=== PATIENT | male | born 1955 | race Caucasian/White ===

== ENCOUNTER 2017-02-24 21:43 | Inpatient (IN) | payer OTHER ==
[~2017-02-24] VITALS: Ht 170.2 cm; Wt 84.1 kg
[~2017-02-24 21:43] MED LIST: METH4TAB2 PO
[2017-02-24] MEDS ORDERED: ONDANSETRON 2MG/ML, 2ML ONE (22:15)
[2017-02-24] MEDS ORDERED: MORPHINE SULFATE 4 MG/ML, 1ML ONE (22:15)
[2017-02-24] MEDS ORDERED: MORPHINE SULFATE 4 MG/ML, 1ML IVPush PRN (22:30)
[2017-02-24] MEDS ORDERED: SODIUM CHLORIDE 0.9% 1,000ML IVBOLUS ONE (22:30)
[2017-02-24] MEDS ORDERED: ONDANSETRON 2MG/ML, 2ML IVPush ONE (22:30)
[2017-02-24] MEDS ORDERED: SODIUM CHLORIDE FLUSH 10ML SYR IVF ONE (22:30)
[2017-02-24 22:40] LABS: HEMOGLOBIN 18.9 g/dL (13.7-18.0)
[2017-02-24 22:51] LABS: ASPARTATE AMINO TRANSFERASE 15 U/L (15-37); BLOOD UREA NITROGEN 18 mg/dL (7-18)
[2017-02-24] MEDS ORDERED: OMNIPAQUE 350 MG/ML, 100ML BOTTLE ONE (23:17)
[2017-02-25] MEDS ORDERED: SODIUM CHLORIDE 0.9% 1,000 ML IV ONE (00:32)
[2017-02-25] MEDS ORDERED: ONDANSETRON 2MG/ML, 2ML IVPush PRN (01:00)
[2017-02-25] MEDS ORDERED: MORPHINE SULFATE 4 MG/ML, 1ML IVPush PRN (01:00)
[2017-02-25] MEDS: SODIUM CHLORIDE 0.9% 1,000 ML IV SCH ×3 (02:13→18:02)
[2017-02-25 02:19] VITALS: BP 133/93
[2017-02-25] MEDS ORDERED: DOCUSATE 100 MG CAPSULE PO PRN (02:30)
[2017-02-25] MEDS ORDERED: LABETALOL 5MG/ML, 20ML IV PRN (02:30)
[2017-02-25] MEDS ORDERED: BISACODYL 10 MG SUPP PR PRN (02:30)
[2017-02-25] MEDS ORDERED: ACETAMINOPHEN 325 MG TABLET PO PRN (02:30)
[2017-02-25] MEDS ORDERED: POLYETHYLENE GLYCOL 17 GM PACKET PO PRN (02:30)
[2017-02-25] MEDS ORDERED: TRAZODONE 50MG TABLET PO PRN (02:30)
[2017-02-25] MEDS ORDERED: ONDANSETRON 2MG/ML, 2ML IVP PRN (02:30)
[2017-02-25] MEDS: NICOTINE 14MG/24 HR PATCH.TD24 TD SCH (02:30)
[2017-02-25] MEDS: ENOXAPARIN 40 MG/0.4 ML SQ SCH (03:02)
[2017-02-25 07:45] VITALS: BP 141/90
[2017-02-25] MEDS: MORPHINE SULFATE 4 MG/ML, 1ML IVPush PRN ×2 (08:20→18:03)
[2017-02-25] MEDS: FAMOTIDINE 20 MG/2 ML IV SCH ×2 (08:21→20:25)
[2017-02-25] MEDS ORDERED: GOLYTELY 4,000ML ORAL.SOL PO ONE (09:00)
[2017-02-25] MEDS ORDERED: METOCLOPRAMIDE 10MG TABLET PO ONE (09:00)
[2017-02-25 14:23] VITALS: BP 105/74
[2017-02-25] MEDS ORDERED: BISACODYL 5 MG EC TABLET PO ONE (16:00)
[2017-02-25 19:23] VITALS: BP 122/72
[2017-02-26 01:46] VITALS: BP 117/74
[2017-02-26] MEDS: SODIUM CHLORIDE 0.9% 1,000 ML IV SCH ×2 (02:27→10:13)
[2017-02-26] MEDS: ENOXAPARIN 40 MG/0.4 ML SQ SCH (02:28)
[2017-02-26] MEDS: NICOTINE 14MG/24 HR PATCH.TD24 TD SCH (02:28)
[2017-02-26 06:07] LABS: BLOOD UREA NITROGEN 10 mg/dL (7-18)
[2017-02-26 07:44] VITALS: BP 109/74
[2017-02-26] MEDS ORDERED: LACTULOSE 20 GM/30 ML UDC PO ONE (08:00)
[2017-02-26] MEDS: FAMOTIDINE 20 MG/2 ML IV SCH (08:20)
[2017-02-26 13:54] VITALS: BP 120/74
== END 2017-02-26 14:34 | disposition home or self-care (01) | DRG 389 ==
LOC: EDIP 02-25 00:32 → ED 02-25 00:43 → 3NE 02-25 01:49
PROVIDERS: ADMIT Internal Medicine; ATTEND Internal Medicine
DX: K56.7 Ileus, unspecified (principal); E87.1 Hypo-osmolality and hyponatremia; K56.5 Intestinal adhesions [bands] with obstruction (postinfection); D75.1 Secondary polycythemia; F17.210 Nicotine dependence, cigarettes, uncomplicated; K57.30 Diverticulosis of large intestine without perforation or abscess without bleeding; N28.1 Cyst of kidney, acquired; R09.02 Hypoxemia; R00.0 Tachycardia, unspecified; Z80.7 Family history of other malignant neoplasms of lymphoid, hematopoietic and related tissues; Z90.49 Acquired absence of other specified parts of digestive tract
CPT/HCPCS: 36415; 74177; 74270; 80048; 80053; 81003; 83690; 85025; 87324; 96361; 96374; 96375; J1650; J2405; Q9967; J7030; J7512; S0028

== ENCOUNTER 2017-03-03 05:02 | Emergency (ER) | payer OTHER ==
[~2017-03-03] VITALS: Ht 170.2 cm; Wt 80.6 kg
[2017-03-03] MEDS ORDERED: SODIUM CHLORIDE 0.9% 1,000 ML IV ONE (05:21)
[2017-03-03] MEDS ORDERED: MORPHINE SULFATE 4 MG/ML, 1ML ONE ×2 (05:24→06:37)
[2017-03-03] MEDS ORDERED: FAMOTIDINE 20 MG/2 ML ONE (05:25)
[2017-03-03] MEDS ORDERED: ONDANSETRON 2MG/ML, 2ML ONE (05:25)
[2017-03-03] MEDS ORDERED: FAMOTIDINE 20 MG/2 ML IVP ONE (05:30)
[2017-03-03] MEDS ORDERED: MAALOX/HYOSCYAMINE/LIDOCAINE 45 ML BOTTLE PO ONE (05:30)
[2017-03-03] MEDS ORDERED: ONDANSETRON 2MG/ML, 2ML IVPush ONE (05:30)
[2017-03-03] MEDS ORDERED: SODIUM CHLORIDE 0.9% 1,000ML IVBOLUS ONE (05:30)
[2017-03-03] MEDS: MORPHINE SULFATE 4 MG/ML, 1ML IVPush PRN ×2 (05:40→06:38)
[2017-03-03 05:56] LABS: HEMOGLOBIN 18.1 g/dL (13.7-18.0)
[2017-03-03 06:05] LABS: ASPARTATE AMINO TRANSFERASE 16 U/L (15-37); BLOOD UREA NITROGEN 19 mg/dL (7-18)
[2017-03-03] MEDS ORDERED: MAALOX/HYOSCYAMINE/LIDOCAINE 45 ML BOTTLE ONE (06:36)
[2017-03-03 10:02] VITALS: BP 136/89
== END 2017-03-03 10:08 | disposition home or self-care (01) ==
LOC: ED 05:19
DX: R10.84 Generalized abdominal pain (principal)
CPT/HCPCS: 36415; 74177; 80053; 81003; 83605; 83690; 85025; 85610; 93005; 96361; 96374; 96375; 96376; 99285; J2405; J7030; S0028

== ENCOUNTER → 2017-05-26 | Outpatient (CLI) | payer OTHER ==
[~2017-05-26] MED LIST changes: +LOPE2CAP94 PO
== END | disposition home or self-care (01) ==
LOC: STAR 09:24
PROVIDERS: ATTEND Internal Medicine Gastroenterology
DX: Z01.818 Encounter for other preprocedural examination (principal); R94.31 Abnormal electrocardiogram [ECG] [EKG]; R19.4 Change in bowel habit; K56.69 Other intestinal obstruction
CPT/HCPCS: 93005

== ENCOUNTER 2017-06-02 05:22 | Day surgery (SDC) | payer OTHER ==
[~2017-06-02] VITALS: Ht 170.2 cm; Wt 78.0 kg
[2017-06-02] MEDS ORDERED: LACTATED RINGERS 1,000 ML IV SCH (06:07)
[2017-06-02 06:09] VITALS: BP 141/103
[2017-06-02] MEDS ORDERED: MIDAZOLAM 1 MG/ML, 2ML ONE (07:22)
[2017-06-02] MEDS ORDERED: PROPOFOL 10 MG/ML, 20ML ONE (07:32)
[2017-06-02] MEDS ORDERED: PROPOFOL 10 MG/ML, 50ML ONE (07:32)
== END 2017-06-02 10:03 ==
LOC: OUT 05:22
PROVIDERS: ATTEND Internal Medicine Gastroenterology
DX: K29.50 Unspecified chronic gastritis without bleeding (principal); K29.80 Duodenitis without bleeding; K63.89 Other specified diseases of intestine; Z98.0 Intestinal bypass and anastomosis status; F17.200 Nicotine dependence, unspecified, uncomplicated; Z90.49 Acquired absence of other specified parts of digestive tract; Z98.890 Other specified postprocedural states
CPT/HCPCS: 43239; 45380; 74000; 76000; 88305; C1725; J2250; J2704; J7120

== ENCOUNTER → 2017-09-02 | Outpatient (CLI) | payer OTHER ==
[~2017-09-02] MED LIST changes: +CEFAZOLIN 1,000 MG ONE; +FENTANYL PF 100 MCG/2ML ONE; +GLYCOPYRROLATE 0.4 MG/2 ML, 2ML ONE; +IBUP200C8 PO; +MIDAZOLAM 1 MG/ML, 2ML ONE; +NEOSTIGMINE 1 MG/ML, 10ML ONE; +PROPOFOL 10 MG/ML, 20ML ONE; +ROCURONIUM 10 MG/ML ONE
== END | disposition home or self-care (01) ==
LOC: STAR 08:48
PROVIDERS: ATTEND Surgery
DX: Z01.818 Encounter for other preprocedural examination (principal); K66.0 Peritoneal adhesions (postprocedural) (postinfection)
CPT/HCPCS: 93005

== ENCOUNTER 2017-09-07 07:06 | Day surgery (SDC) | payer OTHER ==
[~2017-09-07] VITALS: Ht 170.2 cm; Wt 83.1 kg
[~2017-09-07 07:06] MED LIST changes: +BUPIVACAINE/PF 0.5% ONE; -CEFAZOLIN 1,000 MG ONE; +EPINEPHRINE 1 MG/ML, 1ML ONE; -FENTANYL PF 100 MCG/2ML ONE; -GLYCOPYRROLATE 0.4 MG/2 ML, 2ML ONE; -MIDAZOLAM 1 MG/ML, 2ML ONE; -NEOSTIGMINE 1 MG/ML, 10ML ONE; -PROPOFOL 10 MG/ML, 20ML ONE; -ROCURONIUM 10 MG/ML ONE
[2017-09-07 07:37] VITALS: BP 140/99
[2017-09-07] MEDS ORDERED: LACTATED RINGERS 1,000 ML IV SCH (08:00)
[2017-09-07] MEDS ORDERED: MEPERIDINE/PF 25MG/0.5ML IVPush PRN (09:00)
[2017-09-07] MEDS ORDERED: ONDANSETRON 2MG/ML, 2ML IVPush PRN (09:00)
[2017-09-07] MEDS ORDERED: LABETALOL 5MG/ML, 20ML IV PRN (09:00)
[2017-09-07] MEDS ORDERED: OXYcodone 5 MG/5 ML ORAL.SOL UDC PO PRN (09:00)
[2017-09-07] MEDS ORDERED: HYDROmorphone 1 MG/ML, 1ML IV PRN (09:00)
[2017-09-07] MEDS ORDERED: PROMETHAZINE 25 MG/ML, 1ML IV PRN (09:00)
[2017-09-07] MEDS ORDERED: ACETAMINOPHEN 325 MG TABLET PO PRN (09:00)
[2017-09-07] MEDS ORDERED: BUPIVACAINE/PF-EPI 0.25% 1:200K IM ONE (09:00)
[2017-09-07] MEDS ORDERED: hydrALAzine 20 MG/ML, 1ML IV PRN (09:00)
[2017-09-07] MEDS ORDERED: FENTANYL PF 100 MCG/2ML ONE ×2 (09:56→16:15)
[2017-09-07] MEDS ORDERED: ACETAMINOPHEN 650 MG/20.3 ML UDC ONE (09:56)
[2017-09-07] MEDS ORDERED: OXYcodone 5 MG/5 ML ORAL.SOL UDC ONE (09:56)
[2017-09-07] MEDS: FENTANYL PF 100 MCG/2ML IV PRN ×2 (09:58→10:11)
[2017-09-07] MEDS ORDERED: HYDROmorphone 2 MG/ML, 1ML ONE (10:19)
[2017-09-07] MEDS ORDERED: LABETALOL 5MG/ML, 20ML ONE (10:25)
[2017-09-07] MEDS ORDERED: GLYCOPYRROLATE 0.2MG/1ML, 5ML ONE (16:15)
[2017-09-07] MEDS ORDERED: PROPOFOL 10 MG/ML, 20ML ONE (16:15)
[2017-09-07] MEDS ORDERED: PHENYLEPHRINE 10 MG/ML ONE (16:15)
[2017-09-07] MEDS ORDERED: CEFAZOLIN 1,000 MG ONE (16:15)
[2017-09-07] MEDS ORDERED: ROCURONIUM 10MG/ML,5ML ONE (16:15)
[2017-09-07] MEDS ORDERED: MIDAZOLAM 1 MG/ML, 2ML ONE (16:15)
== END 2017-09-07 13:10 ==
LOC: OUT 07:06
PROVIDERS: ATTEND Surgery
DX: K56.609 Unspecified intestinal obstruction, unspecified as to partial versus complete obstruction (principal); J45.909 Unspecified asthma, uncomplicated; Z98.890 Other specified postprocedural states; Z90.49 Acquired absence of other specified parts of digestive tract
CPT/HCPCS: 44180; J0171; J0690; J1170; J2250; J2370; J2704; J3010; J3490; J7120; J2710

== ENCOUNTER 2018-10-02 19:15 | Inpatient (IN) | payer OTHER ==
[~2018-10-02] VITALS: Ht 170.2 cm; Wt 83.6 kg
[~2018-10-02 19:15] MED LIST changes: -BUPIVACAINE/PF 0.5% ONE; -EPINEPHRINE 1 MG/ML, 1ML ONE
[2018-10-02] MEDS ORDERED: ONDANSETRON 2MG/ML, 2ML ONE (19:58)
[2018-10-02] MEDS ORDERED: MORPHINE SULFATE 4 MG/ML, 1ML ONE ×3 (19:59→23:41)
[2018-10-02] MEDS ORDERED: ONDANSETRON 2MG/ML, 2ML IVPush ONE (20:00)
[2018-10-02] MEDS ORDERED: ONDANSETRON ODT 4 MG PO ONE (20:00)
[2018-10-02] MEDS ORDERED: SODIUM CHLORIDE FLUSH 10ML SYR IVF ONE (20:00)
[2018-10-02] MEDS ORDERED: SODIUM CHLORIDE 0.9% 1,000ML IVBOLUS ONE (20:00)
[2018-10-02 20:02] LABS: BASOPHILS # (AUTO) 0.03 x10^3/uL (0-0.1); BASOPHILS % (AUTO) 0 % (0-1); EOSINOPHILS # (AUTO) 0.13 x10^3/uL (0-0.4); EOSINOPHILS % (AUTO) 2 % (1-7); LYMPHOCYTES # (AUTO) 1.53 x10^3/uL (1-3.4); LYMPHOCYTES % (AUTO) 20 % (22-44); MD NO; MEAN CORPUSCULAR HGB CONC 33.7 g/dL (33.2-36.2); MEAN CORPUSCULAR VOLUME 91.8 fL (81-97); MEAN PLATELET VOLUME 7.6 fL (7.4-10.4); MONOCYTES % (AUTO) 19 % (2-9); NEUTROPHILS # (AUTO) 4.45 x10^3/uL (1.8-6.8); NEUTROPHILS % (AUTO) 59 % (42-75); PLATELET COUNT 257 x10^3/uL (130-400); RED BLOOD COUNT 6.28 x10^6/uL (4.38-5.82); RED CELL DISTRIBUTION WIDTH 13.7 % (9.4-14.8)
[2018-10-02] MEDS: MORPHINE SULFATE 4 MG/ML, 1ML IVPush PRN ×2 (20:02→20:38)
[2018-10-02 20:15] LABS: ALBUMIN 3.6 g/dL (3.4-5.0); ANION GAP 10 mmol/L (5-15); CALCIUM 8.6 mg/dL (8.5-10.1); CHLORIDE 102 mmol/L (98-107)
[2018-10-02 20:19] LABS: ALANINE AMINOTRANSFERASE 59 U/L (12-78); ALKALINE PHOSPHATASE 64 U/L (45-117); BILIRUBIN,TOTAL 0.9 mg/dL (0.2-1.0); CREATININE 1.07 mg/dL (0.7-1.3); TOTAL PROTEIN 7.5 g/dL (6.4-8.2)
[2018-10-02] MEDS ORDERED: HYDR-3240 PO (20:39)
[2018-10-02] MEDS ORDERED: OMNIPAQUE 350 MG/ML, 100ML BOTTLE ONE (21:16)
[2018-10-02 22:16] LABS: CULTURE INDICATED? NO; MICROSCOPIC NOT IND
[2018-10-02] MEDS ORDERED: SODIUM CHLORIDE 0.9% 1,000 ML IV ONE (23:30)
[2018-10-02] MEDS: morphine SULFATE 10 MG/ML, 1ML IVPush PRN (23:43)
[2018-10-03] MEDS ORDERED: hydrALAzine 20 MG/ML, 1ML IVPush PRN
[2018-10-03] MEDS ORDERED: ONDANSETRON 2MG/ML, 2ML IVPush PRN
[2018-10-03] MEDS ORDERED: LIDODERM 5% PATCH TD PRN
[2018-10-03 01:18] VITALS: BP 136/89
[2018-10-03] MEDS: SODIUM CHLORIDE 0.9% 1,000 ML IV SCH ×4 (01:47→21:10)
[2018-10-03] MEDS: KETOROLAC 30 MG/1 ML IV PRN ×3 (06:52→23:03)
[2018-10-03 07:04] VITALS: BP 117/80
[2018-10-03 12:10] VITALS: BP 116/81
[2018-10-03 19:42] VITALS: BP 116/78
[2018-10-04 02:45] VITALS: BP 118/71
[2018-10-04] MEDS: SODIUM CHLORIDE 0.9% 1,000 ML IV SCH ×2 (04:22→17:51)
[2018-10-04] MEDS: morphine SULFATE 10 MG/ML, 1ML IVPush PRN ×2 (05:44→19:37)
[2018-10-04 06:40] LABS: CLOSTRIDIUM DIFFICILE ANTIGEN NEGATIVE; CLOSTRIDIUM DIFFICILE TOXIN NEGATIVE (Negative)
[2018-10-04 07:05] VITALS: BP 122/76
[2018-10-04 12:46] VITALS: BP 132/72
[2018-10-04] MEDS: KETOROLAC 30 MG/1 ML IV PRN ×2 (17:51→23:46)
[2018-10-04 19:12] VITALS: BP 126/88
[2018-10-05 03:07] VITALS: BP 143/89
[2018-10-05] MEDS: SODIUM CHLORIDE 0.9% 1,000 ML IV SCH (06:03)
[2018-10-05] MEDS: KETOROLAC 30 MG/1 ML IV PRN (06:03)
[2018-10-05 07:22] VITALS: BP 143/92
[2018-10-05 14:41] VITALS: BP 138/90
[2018-10-05 19:05] VITALS: BP 141/94
[2018-10-06 02:32] VITALS: BP 137/89
[2018-10-06] MEDS ORDERED: BACITRACIN 50,000 UNIT ONE (07:50)
[2018-10-06 08:32] VITALS: BP 127/88
[2018-10-06] MEDS ORDERED: MIDAZOLAM 1 MG/ML, 2ML ONE (09:59)
[2018-10-06] MEDS ORDERED: FENTANYL PF 250 MCG/5ML ONE (09:59)
[2018-10-06] MEDS ORDERED: ROCURONIUM 10MG/ML,5ML ONE (10:59)
[2018-10-06] MEDS ORDERED: NEOSTIGMINE 1 MG/ML, 10ML ONE (10:59)
[2018-10-06] MEDS ORDERED: GLYCOPYRROLATE 0.2MG/1ML, 5ML ONE (10:59)
[2018-10-06] MEDS ORDERED: DEXAMETHASONE 4 MG/ML, 1ML ONE (10:59)
[2018-10-06] MEDS ORDERED: CEFAZOLIN 1,000 MG ONE (10:59)
[2018-10-06] MEDS ORDERED: PROPOFOL 10 MG/ML, 20ML ONE (10:59)
[2018-10-06] MEDS ORDERED: SUCCINYLCHOLINE 20 MG/ML, 10ML ONE ×2 (10:59→16:25)
[2018-10-06] MEDS ORDERED: ONDANSETRON 2MG/ML, 2ML ONE (10:59)
[2018-10-06] MEDS ORDERED: PROMETHAZINE 25 MG SUPP PR PRN (11:00)
[2018-10-06] MEDS ORDERED: MEPERIDINE/PF 50 MG/ML ONE (11:00)
[2018-10-06] MEDS ORDERED: ONDANSETRON 2MG/ML, 2ML IV PRN (11:00)
[2018-10-06] MEDS ORDERED: MEPERIDINE/PF 25MG/0.5ML IVPush PRN (11:00)
[2018-10-06] MEDS ORDERED: hydrALAzine 20 MG/ML, 1ML IV PRN (11:00)
[2018-10-06] MEDS ORDERED: ALBUTEROL/IPRATROPIUM 2.5MG/0.5MG, 3 ML NPPB PRN (11:00)
[2018-10-06] MEDS ORDERED: MIDAZOLAM 1 MG/ML, 2ML IV PRN (11:00)
[2018-10-06] MEDS ORDERED: FENTANYL PF 100 MCG/2ML ONE ×2 (11:13→12:06)
[2018-10-06] MEDS ORDERED: HYDROmorphone 2 MG/ML, 1ML ONE ×3 (11:14→19:20)
[2018-10-06] MEDS ORDERED: LABETALOL 5MG/ML, 20ML ONE (11:19)
[2018-10-06] MEDS: LABETALOL 5MG/ML, 20ML IV PRN ×4 (11:21→11:53)
[2018-10-06] MEDS: FENTANYL PF 100 MCG/2ML IV PRN ×4 (11:30→12:24)
[2018-10-06] MEDS: HYDROmorphone 1 MG/ML, 1ML IV PRN ×4 (11:35→11:55)
[2018-10-06 13:16] VITALS: BP 144/96
[2018-10-06 13:53] VITALS: BP 138/89
[2018-10-06] MEDS ORDERED: HYDROmorphone 1 MG/ML, 1ML IV PRN (14:30)
[2018-10-06] MEDS ORDERED: morphine SULFATE 10 MG/ML, 1ML IV PRN (14:30)
[2018-10-06] MEDS: ENOXAPARIN 40 MG/0.4 ML SQ SCH (14:30)
[2018-10-06] MEDS: SODIUM CHLORIDE 0.9% 1,000 ML IV SCH ×2 (15:55→23:00)
[2018-10-06] MEDS ORDERED: KETOROLAC 30 MG/1 ML ONE (16:25)
[2018-10-06] MEDS: HYDROmorphone 2 MG/ML, 1ML IV PRN ×3 (19:49→23:37)
[2018-10-06 20:37] VITALS: BP 151/89
[2018-10-06] MEDS: KETOROLAC 30 MG/1 ML IV PRN (21:39)
[2018-10-06] MEDS: CEFOTETAN PMX 1GM/50ML 50 ML IVPB SCH (22:32)
[2018-10-06 23:52] VITALS: BP 135/85
[2018-10-07] MEDS: HYDROmorphone 2 MG/ML, 1ML IV PRN ×8 (01:25→22:29)
[2018-10-07] MEDS: KETOROLAC 30 MG/1 ML IV PRN ×3 (03:52→20:05)
[2018-10-07 04:05] VITALS: BP 133/72
[2018-10-07] MEDS: POTASSIUM CHLORIDE 20 MEQ in D5%-0.45% NACL 1,000 ML IV SCH ×2 (05:25→14:41)
[2018-10-07 05:29] LABS: ALANINE AMINOTRANSFERASE 49 U/L (12-78); ALKALINE PHOSPHATASE 49 U/L (45-117); BILIRUBIN,TOTAL 0.4 mg/dL (0.2-1.0); CREATININE 1.07 mg/dL (0.7-1.3); TOTAL PROTEIN 6.1 g/dL (6.4-8.2)
[2018-10-07 05:36] LABS: ALBUMIN 2.9 g/dL (3.4-5.0); ANION GAP 8 mmol/L (5-15); CALCIUM 7.8 mg/dL (8.5-10.1); CHLORIDE 109 mmol/L (98-107)
[2018-10-07 05:48] LABS: MEAN CORPUSCULAR HEMOGLOBIN 31.1 pg (27.5-34.5); MEAN CORPUSCULAR HGB CONC 33.9 g/dL (33.2-36.2); MEAN CORPUSCULAR VOLUME 91.8 fL (81-97); PLATELET COUNT 243 x10^3/uL (130-400); RED BLOOD COUNT 5.37 x10^6/uL (4.38-5.82); RED CELL DISTRIBUTION WIDTH 13.1 % (9.4-14.8)
[2018-10-07 06:24] LABS: MD YES
[2018-10-07 06:30] LABS: BAND#(MANUAL) 0.05 x10^3/uL; BANDS%(MANUAL) 1 % (0-7); EOS#(MANUAL) 0.21 x10^3/uL (0.0-0.4); EOS% (MANUAL) 4 % (1-7); LYMPHS% (MANUAL) 27 % (22-44); MONOS#(MANUAL) 0.94 x10^3/uL (0.3-2.7); MONOS% (MANUAL) 18 % (2-9); REACTIVE LYMPHS # (MANUAL) 0.16 x10^3/uL (0-0); REACTIVE LYMPHS % (MANUAL) 3 % (0-0); SEG#(MANUAL) 2.44 x10^3/uL (1.8-6.8); SEGS% (MANUAL) 47 % (42-75)
[2018-10-07 06:31] LABS: <PLATELET ESTIMATE> ADEQUATE; <RBC MORPHOLOGY> NORMAL
[2018-10-07 06:32] LABS: <PLT MORPHOLOGY> NORMAL PLT MORPH
[2018-10-07 07:07] VITALS: BP 121/80
[2018-10-07] MEDS: CEFOTETAN PMX 1GM/50ML 50 ML IVPB SCH (10:42)
[2018-10-07] MEDS: SODIUM CHLORIDE 0.9% 1,000 ML IV SCH (13:00)
[2018-10-07 13:19] VITALS: BP 148/92
[2018-10-07] MEDS: ENOXAPARIN 40 MG/0.4 ML SQ SCH (14:30)
[2018-10-07 19:26] VITALS: BP 157/107
[2018-10-07] MEDS ORDERED: BENZOCAINE AEROSOL SPRAY 20%, 60ML TP PRN (20:30)
[2018-10-08] MEDS: HYDROmorphone 2 MG/ML, 1ML IV PRN ×11 (00:30→23:32)
[2018-10-08 02:06] VITALS: BP 134/83
[2018-10-08] MEDS: POTASSIUM CHLORIDE 20 MEQ in D5%-0.45% NACL 1,000 ML IV SCH ×3 (02:28→21:51)
[2018-10-08 06:55] VITALS: BP 156/91
[2018-10-08 12:00] VITALS: BP 161/102
[2018-10-08] MEDS: ENOXAPARIN 40 MG/0.4 ML SQ SCH (14:52)
[2018-10-08 17:07] VITALS: BP 156/96
[2018-10-08 17:41] VITALS: BP 132/88
[2018-10-08 18:46] VITALS: BP 134/92
[2018-10-09] MEDS: HYDROmorphone 2 MG/ML, 1ML IV PRN ×10 (01:36→22:12)
[2018-10-09 02:11] VITALS: BP 134/89
[2018-10-09 05:22] LABS: ANION GAP 7 mmol/L (5-15); CHLORIDE 103 mmol/L (98-107); CREATININE 0.84 mg/dL (0.7-1.3)
[2018-10-09] MEDS: POTASSIUM CHLORIDE 20 MEQ in D5%-0.45% NACL 1,000 ML IV SCH ×3 (05:41→22:12)
[2018-10-09 05:44] LABS: BASOPHILS # (AUTO) 0.02 x10^3/uL (0-0.1); BASOPHILS % (AUTO) 0 % (0-1); EOSINOPHILS # (AUTO) 0.47 x10^3/uL (0-0.4); EOSINOPHILS % (AUTO) 6 % (1-7); LYMPHOCYTES # (AUTO) 1.42 x10^3/uL (1-3.4); LYMPHOCYTES % (AUTO) 17 % (22-44); MD NO; MEAN CORPUSCULAR HEMOGLOBIN 31.3 pg (27.5-34.5); MEAN CORPUSCULAR HGB CONC 33.9 g/dL (33.2-36.2); MEAN CORPUSCULAR VOLUME 92.4 fL (81-97); MEAN PLATELET VOLUME 7.8 fL (7.4-10.4); MONOCYTES # (AUTO) 1.05 x10^3/uL (0.2-0.8); MONOCYTES % (AUTO) 12 % (2-9); NEUTROPHILS # (AUTO) 5.49 x10^3/uL (1.8-6.8); NEUTROPHILS % (AUTO) 65 % (42-75); PLATELET COUNT 267 x10^3/uL (130-400); RED BLOOD COUNT 5.28 x10^6/uL (4.38-5.82); RED CELL DISTRIBUTION WIDTH 13.2 % (9.4-14.8)
[2018-10-09 06:56] VITALS: BP 151/89
[2018-10-09] MEDS: METOCLOPRAMIDE 5 MG/ML, 2ML IVPush PRN ×2 (08:04→20:09)
[2018-10-09 13:05] VITALS: BP 144/94
[2018-10-09] MEDS: ENOXAPARIN 40 MG/0.4 ML SQ SCH (14:48)
[2018-10-09 18:37] VITALS: BP 143/75
[2018-10-10] MEDS: HYDROmorphone 2 MG/ML, 1ML IV PRN ×11 (00:33→22:36)
[2018-10-10 01:22] VITALS: BP 156/84
[2018-10-10] MEDS: METOCLOPRAMIDE 5 MG/ML, 2ML IVPush PRN ×4 (02:33→22:37)
[2018-10-10] MEDS: POTASSIUM CHLORIDE 20 MEQ in D5%-0.45% NACL 1,000 ML IV SCH ×3 (06:00→22:36)
[2018-10-10 07:27] VITALS: BP 139/88
[2018-10-10 12:43] VITALS: BP 122/79
[2018-10-10] MEDS: ENOXAPARIN 40 MG/0.4 ML SQ SCH (14:16)
[2018-10-10 19:19] VITALS: BP 134/89
[2018-10-11] MEDS: HYDROmorphone 2 MG/ML, 1ML IV PRN ×6 (00:50→15:58)
[2018-10-11 02:11] VITALS: BP 124/85
[2018-10-11] MEDS: METOCLOPRAMIDE 5 MG/ML, 2ML IVPush PRN (05:21)
[2018-10-11] MEDS: POTASSIUM CHLORIDE 20 MEQ in D5%-0.45% NACL 1,000 ML IV SCH ×3 (06:15→23:16)
[2018-10-11 07:24] VITALS: BP 132/93
[2018-10-11] MEDS: ONDANSETRON 2MG/ML, 2ML IV PRN (09:14)
[2018-10-11] MEDS: HYDROcodone/APAP 5/325 TABLET PO PRN ×4 (09:14→22:50)
[2018-10-11 09:51] VITALS: BP 128/92
[2018-10-11 13:52] VITALS: BP 117/86
[2018-10-11] MEDS: ENOXAPARIN 40 MG/0.4 ML SQ SCH (15:28)
[2018-10-11 21:27] VITALS: BP 130/88
[2018-10-12 02:24] VITALS: BP 133/83
[2018-10-12] MEDS: ONDANSETRON 2MG/ML, 2ML IV PRN ×5 (02:41→20:00)
[2018-10-12] MEDS: HYDROmorphone 2 MG/ML, 1ML IV PRN ×6 (04:53→23:16)
[2018-10-12] MEDS: METOCLOPRAMIDE 5 MG/ML, 2ML IVPush PRN ×2 (04:55→12:18)
[2018-10-12 06:42] LABS: BASOPHILS # (AUTO) 0.01 x10^3/uL (0-0.1); BASOPHILS % (AUTO) 0 % (0-1); EOSINOPHILS # (AUTO) 0.28 x10^3/uL (0-0.4); EOSINOPHILS % (AUTO) 3 % (1-7); LYMPHOCYTES # (AUTO) 0.94 x10^3/uL (1-3.4); LYMPHOCYTES % (AUTO) 10 % (22-44); MD NO; MEAN CORPUSCULAR HGB CONC 33.9 g/dL (33.2-36.2); MEAN CORPUSCULAR VOLUME 91.3 fL (81-97); MEAN PLATELET VOLUME 7.8 fL (7.4-10.4); MONOCYTES # (AUTO) 0.95 x10^3/uL (0.2-0.8); MONOCYTES % (AUTO) 10 % (2-9); NEUTROPHILS # (AUTO) 7.42 x10^3/uL (1.8-6.8); NEUTROPHILS % (AUTO) 77 % (42-75); PLATELET COUNT 284 x10^3/uL (130-400); RED CELL DISTRIBUTION WIDTH 13.7 % (9.4-14.8)
[2018-10-12 06:53] LABS: ALANINE AMINOTRANSFERASE 48 U/L (12-78); ALBUMIN 2.8 g/dL (3.4-5.0); ANION GAP 7 mmol/L (5-15); CALCIUM 7.7 mg/dL (8.5-10.1); CHLORIDE 104 mmol/L (98-107)
[2018-10-12 06:56] LABS: ALKALINE PHOSPHATASE 63 U/L (45-117); BILIRUBIN,TOTAL 0.6 mg/dL (0.2-1.0); CREATININE 0.85 mg/dL (0.7-1.3); TOTAL PROTEIN 6.4 g/dL (6.4-8.2)
[2018-10-12 07:05] VITALS: BP 128/84
[2018-10-12] MEDS: POTASSIUM CHLORIDE 20 MEQ in D5%-0.45% NACL 1,000 ML IV SCH ×2 (07:55→22:39)
[2018-10-12] MEDS ORDERED: OMNIPAQUE 350 MG/ML, 100ML BOTTLE ONE (09:02)
[2018-10-12] MEDS ORDERED: LORazepam 2 MG/ML, 1ML IVPush ONE (13:30)
[2018-10-12] MEDS: ENOXAPARIN 40 MG/0.4 ML SQ SCH (15:21)
[2018-10-12 16:14] VITALS: BP 138/88
[2018-10-12 21:24] VITALS: BP 144/93
[2018-10-12] MEDS ORDERED: KETOROLAC 30 MG/1 ML ONE (22:35)
[2018-10-12] MEDS: KETOROLAC 30 MG/1 ML IVPush PRN (22:39)
[2018-10-13 02:09] VITALS: BP 132/87
[2018-10-13] MEDS: HYDROmorphone 2 MG/ML, 1ML IV PRN ×7 (02:18→21:02)
[2018-10-13 04:56] LABS: ALBUMIN 2.6 g/dL (3.4-5.0); ANION GAP 4 mmol/L (5-15); CALCIUM 7.7 mg/dL (8.5-10.1); CHLORIDE 105 mmol/L (98-107); CREATININE 0.98 mg/dL (0.7-1.3)
[2018-10-13 05:04] LABS: MEAN CORPUSCULAR HGB CONC 33.6 g/dL (33.2-36.2); MEAN CORPUSCULAR VOLUME 92.2 fL (81-97); MEAN PLATELET VOLUME 7.8 fL (7.4-10.4); PLATELET COUNT 301 x10^3/uL (130-400); RED BLOOD COUNT 5.24 x10^6/uL (4.38-5.82); RED CELL DISTRIBUTION WIDTH 13.3 % (9.4-14.8)
[2018-10-13] MEDS: KETOROLAC 30 MG/1 ML IVPush PRN ×3 (05:26→17:32)
[2018-10-13 05:48] LABS: MD YES
[2018-10-13 05:50] LABS: BANDS%(MANUAL) 2 % (0-7); EOS% (MANUAL) 2 % (1-7)
[2018-10-13 05:51] LABS: MONOS#(MANUAL) 0.88 x10^3/uL (0.3-2.7); MONOS% (MANUAL) 17 % (2-9); SEG#(MANUAL) 2.44 x10^3/uL (1.8-6.8); SEGS% (MANUAL) 47 % (42-75)
[2018-10-13 05:52] LABS: <PLATELET ESTIMATE> ADEQUATE; <PLT MORPHOLOGY> NORMAL PLT MORPH; <RBC MORPHOLOGY> NORMAL
[2018-10-13 05:53] LABS: LYMPH#(MANUAL) 1.61 x10^3/uL (1-3.4); LYMPHS% (MANUAL) 31 % (22-44); REACTIVE LYMPHS # (MANUAL) 0.05 x10^3/uL (0-0); REACTIVE LYMPHS % (MANUAL) 1 % (0-0)
[2018-10-13] MEDS: POTASSIUM CHLORIDE 20 MEQ in D5%-0.45% NACL 1,000 ML IV SCH ×2 (06:41→15:39)
[2018-10-13 08:46] VITALS: BP 159/84
[2018-10-13 14:04] VITALS: BP 117/77
[2018-10-13] MEDS: ENOXAPARIN 40 MG/0.4 ML SQ SCH (15:45)
[2018-10-13] MEDS ORDERED: TPN PER PHARMACY MC PRN (16:30)
[2018-10-13] MEDS ORDERED: DEXTROSE 50%, 50ML SYRINGE IVPush PRN (17:00)
[2018-10-13] MEDS ORDERED: DEXTROSE 10% 500 ML IV PRN (17:00)
[2018-10-13] MEDS: FILTER, DISP 1.2 MICRON FOR TPN/PVN IV PRN (17:33)
[2018-10-13] MEDS ORDERED: SMOF TPN IV SCH (18:00)
[2018-10-13] MEDS ORDERED: [UNRECOGNIZED DRUG - OTHER] IV SCH (18:00)
[2018-10-13] MEDS ORDERED: FAT EMUL IV SCH (18:00)
[2018-10-13] MEDS ORDERED: DEXTROSE 70% IV SCH (18:00)
[2018-10-13] MEDS ORDERED: AMINO ACID 10% IV SCH (18:00)
[2018-10-13 19:00] VITALS: BP 146/89
[2018-10-13] MEDS: METOCLOPRAMIDE 5 MG/ML, 2ML IVPush PRN (19:33)
[2018-10-13] MEDS: INSULIN REGULAR MEDIUM DOSE Q6H X 48HRS SQ-INSULIN SCH (20:58)
[2018-10-14] MEDS: HYDROmorphone 2 MG/ML, 1ML IV PRN ×7 (00:47→23:10)
[2018-10-14 01:54] VITALS: BP 134/86
[2018-10-14] MEDS: KETOROLAC 30 MG/1 ML IVPush PRN ×4 (02:44→23:10)
[2018-10-14] MEDS: INSULIN REGULAR MEDIUM DOSE Q6H X 48HRS SQ-INSULIN SCH ×4 (02:46→21:00)
[2018-10-14 05:10] LABS: CHLORIDE 107 mmol/L (98-107)
[2018-10-14 05:25] LABS: ALANINE AMINOTRANSFERASE 28 U/L (12-78); ALBUMIN 2.4 g/dL (3.4-5.0); ALKALINE PHOSPHATASE 51 U/L (45-117); ANION GAP 6 mmol/L (5-15); BILIRUBIN,TOTAL 0.5 mg/dL (0.2-1.0); CALCIUM 7.5 mg/dL (8.5-10.1); CREATININE 0.85 mg/dL (0.7-1.3); PREALBUMIN 14.5 mg/dL (20.0-40.0); TOTAL PROTEIN 5.6 g/dL (6.4-8.2); TRIGLYCERIDES 168 mg/dL (50-200)
[2018-10-14 05:40] LABS: MEAN CORPUSCULAR HEMOGLOBIN 31.5 pg (27.5-34.5); MEAN CORPUSCULAR VOLUME 92.8 fL (81-97); MEAN PLATELET VOLUME 7.7 fL (7.4-10.4); PLATELET COUNT 249 x10^3/uL (130-400); RED BLOOD COUNT 4.65 x10^6/uL (4.38-5.82); RED CELL DISTRIBUTION WIDTH 13.5 % (9.4-14.8)
[2018-10-14 06:19] LABS: MD YES
[2018-10-14 06:23] LABS: BAND#(MANUAL) 0.04 x10^3/uL; BANDS%(MANUAL) 1 % (0-7); EOS#(MANUAL) 0.26 x10^3/uL (0.0-0.4); EOS% (MANUAL) 6 % (1-7); LYMPH#(MANUAL) 1.28 x10^3/uL (1-3.4); LYMPHS% (MANUAL) 29 % (22-44); MONOS#(MANUAL) 0.62 x10^3/uL (0.3-2.7); MONOS% (MANUAL) 14 % (2-9); SEGS% (MANUAL) 50 % (42-75)
[2018-10-14 06:26] LABS: <RBC MORPHOLOGY> NORMAL
[2018-10-14 06:28] LABS: <PLATELET ESTIMATE> ADEQUATE; <PLT MORPHOLOGY> NORMAL PLT MORPH
[2018-10-14 06:53] VITALS: BP 145/89
[2018-10-14] MEDS: D5%-0.45% NACL 1,000 ML IV SCH ×2 (07:36→23:58)
[2018-10-14] MEDS: METOCLOPRAMIDE 5 MG/ML, 2ML IVPush SCH ×3 (12:11→23:10)
[2018-10-14 14:13] VITALS: BP 150/82
[2018-10-14] MEDS: ENOXAPARIN 40 MG/0.4 ML SQ SCH (14:53)
[2018-10-14] MEDS ORDERED: AMINO ACID 10% IV SCH (17:00)
[2018-10-14] MEDS ORDERED: FAT EMUL IV SCH (17:00)
[2018-10-14] MEDS ORDERED: DEXTROSE 70% IV SCH (17:00)
[2018-10-14] MEDS ORDERED: [UNRECOGNIZED DRUG - OTHER] IV SCH (17:00)
[2018-10-14] MEDS ORDERED: SMOF TPN IV SCH (17:00)
[2018-10-14] MEDS: FILTER, DISP 1.2 MICRON FOR TPN/PVN IV PRN (17:18)
[2018-10-14 18:46] VITALS: BP 154/93
[2018-10-15 02:00] VITALS: BP 144/85
[2018-10-15] MEDS: HYDROmorphone 2 MG/ML, 1ML IV PRN ×7 (02:56→22:55)
[2018-10-15] MEDS: INSULIN REGULAR MEDIUM DOSE Q6H X 48HRS SQ-INSULIN SCH ×3 (03:00→16:00)
[2018-10-15] MEDS: METOCLOPRAMIDE 5 MG/ML, 2ML IVPush SCH ×4 (05:24→22:54)
[2018-10-15] MEDS: KETOROLAC 30 MG/1 ML IVPush PRN ×3 (06:26→19:58)
[2018-10-15 06:50] LABS: ALBUMIN 2.6 g/dL (3.4-5.0); ANION GAP 6 mmol/L (5-15); CALCIUM 7.9 mg/dL (8.5-10.1); CHLORIDE 107 mmol/L (98-107)
[2018-10-15 07:03] LABS: ALANINE AMINOTRANSFERASE 25 U/L (12-78); ALKALINE PHOSPHATASE 51 U/L (45-117); BILIRUBIN,TOTAL 0.4 mg/dL (0.2-1.0); CREATININE 0.85 mg/dL (0.7-1.3); TOTAL PROTEIN 5.7 g/dL (6.4-8.2)
[2018-10-15 07:15] VITALS: BP 149/88
[2018-10-15] MEDS: INSULIN REGULAR MEDIUM DOSE QDAY SQ-INSULIN SCH (09:27)
[2018-10-15 14:00] VITALS: BP 138/77
[2018-10-15] MEDS: ENOXAPARIN 40 MG/0.4 ML SQ SCH (14:25)
[2018-10-15] MEDS ORDERED: AMINO ACID 10% IV SCH (17:00)
[2018-10-15] MEDS ORDERED: [UNRECOGNIZED DRUG - OTHER] IV SCH (17:00)
[2018-10-15] MEDS ORDERED: FAT EMUL IV SCH (17:00)
[2018-10-15] MEDS ORDERED: DEXTROSE 70% IV SCH (17:00)
[2018-10-15] MEDS ORDERED: SMOF TPN IV SCH (17:00)
[2018-10-15 18:51] VITALS: BP 146/85
[2018-10-15] MEDS: D5%-0.45% NACL 1,000 ML IV SCH (20:04)
[2018-10-16 01:22] VITALS: BP 139/83
[2018-10-16] MEDS: HYDROmorphone 2 MG/ML, 1ML IV PRN (01:58)
[2018-10-16] MEDS: KETOROLAC 30 MG/1 ML IVPush PRN ×3 (01:58→17:43)
[2018-10-16] MEDS: METOCLOPRAMIDE 5 MG/ML, 2ML IVPush SCH ×4 (05:05→22:13)
[2018-10-16] MEDS: HYDROcodone/APAP 5/325 TABLET PO PRN ×5 (05:05→22:13)
[2018-10-16 05:38] LABS: ANION GAP 4 mmol/L (5-15); CALCIUM 7.8 mg/dL (8.5-10.1); CHLORIDE 107 mmol/L (98-107); CREATININE 0.79 mg/dL (0.7-1.3)
[2018-10-16 07:23] VITALS: BP 143/85
[2018-10-16] MEDS: INSULIN REGULAR MEDIUM DOSE QDAY SQ-INSULIN SCH (08:03)
[2018-10-16 12:51] VITALS: BP 155/88
[2018-10-16] MEDS: ENOXAPARIN 40 MG/0.4 ML SQ SCH (13:57)
[2018-10-16] MEDS: FILTER, DISP 1.2 MICRON FOR TPN/PVN IV PRN (16:56)
[2018-10-16] MEDS: D5%-0.45% NACL 1,000 ML IV SCH (16:56)
[2018-10-16] MEDS ORDERED: FAT EMUL IV SCH (17:00)
[2018-10-16] MEDS ORDERED: [UNRECOGNIZED DRUG - OTHER] IV SCH (17:00)
[2018-10-16] MEDS ORDERED: SMOF TPN IV SCH (17:00)
[2018-10-16] MEDS ORDERED: DEXTROSE 70% IV SCH (17:00)
[2018-10-16] MEDS ORDERED: AMINO ACID 10% IV SCH (17:00)
[2018-10-16 19:35] VITALS: BP 165/95
[2018-10-16 20:55] VITALS: BP 143/91
[2018-10-17 02:09] VITALS: BP 167/92
[2018-10-17] MEDS: METOCLOPRAMIDE 5 MG/ML, 2ML IVPush SCH (05:00)
[2018-10-17 05:21] LABS: ANION GAP 5 mmol/L (5-15); CALCIUM 8.6 mg/dL (8.5-10.1); CHLORIDE 104 mmol/L (98-107); CREATININE 0.87 mg/dL (0.7-1.3)
[2018-10-17 07:48] VITALS: BP 153/97
[2018-10-17] MEDS ORDERED: LISI-167 PO (08:36)
[2018-10-17] MEDS: INSULIN REGULAR MEDIUM DOSE QDAY SQ-INSULIN SCH (09:00)
[2018-10-17] MEDS ORDERED: TRAM50TA2 PO (09:00)
[2018-10-17] MEDS ORDERED: LISINOPRIL 10 MG TABLET PO SCH (09:00)
[2018-10-17 10:55] VITALS: BP 152/96
== END 2018-10-17 11:16 | disposition home or self-care (01) | DRG 335 ==
LOC: ED 22:48 → EDIP 23:31 → 4NOR 10-03 00:55 → DCLOUNGE 10-17 11:00
PROVIDERS: ADMIT Family Medicine; ATTEND Family Medicine
PROC: 0DH67UZ Insertion of Feeding Device into Stomach, Via Natural or Artificial Opening (ICD-10-PCS; 2018-10-02)
PROC: 0DNB0ZZ Release Ileum, Open Approach (ICD-10-PCS; principal; 2018-10-06 10:30)
PROC: 02HV33Z Insertion of Infusion Device into Superior Vena Cava, Percutaneous Approach (ICD-10-PCS; 2018-10-13)
PROC: B5181ZA Fluoroscopy of Superior Vena Cava using Low Osmolar Contrast, Guidance (ICD-10-PCS; 2018-10-13)
PROC: B548ZZA Ultrasonography of Superior Vena Cava, Guidance (ICD-10-PCS; 2018-10-13)
PROC: 3E0436Z Introduction of Nutritional Substance into Central Vein, Percutaneous Approach (ICD-10-PCS; 2018-10-13)
PROC: 0D20XUZ Change Feeding Device in Upper Intestinal Tract, External Approach (ICD-10-PCS; 2018-10-13)
DX: K56.51 Intestinal adhesions [bands], with partial obstruction (principal); J96.01 Acute respiratory failure with hypoxia; E87.1 Hypo-osmolality and hyponatremia; E86.0 Dehydration; E66.9 Obesity, unspecified; E86.1 Hypovolemia; F17.200 Nicotine dependence, unspecified, uncomplicated; J44.9 Chronic obstructive pulmonary disease, unspecified; T40.605A Adverse effect of unspecified narcotics, initial encounter; K56.7 Ileus, unspecified; K57.30 Diverticulosis of large intestine without perforation or abscess without bleeding; Z80.7 Family history of other malignant neoplasms of lymphoid, hematopoietic and related tissues; Z68.28 Body mass index [BMI] 28.0-28.9, adult; Z90.49 Acquired absence of other specified parts of digestive tract
CPT/HCPCS: 36415; 74018; 74021; 74022; 74245; 77001; 99285; J3475; J3490; 36569; 74177; 76937; 80048; 80053; 81003; 82040; 82962; 83690; 83735; 84100; 84134; 84478; 85025; 87324; 93005; 96361; 96374; 96375; 96376; G0378; J0610; J0690; J1100; J1170; J1650; J1885; J2175; J2250; J2405; J2704; J2710; J3010; J3480; Q9967; C1751; J0330; J0360; J2060; J2270; J2765; J3420; J7030

== ENCOUNTER 2018-10-29 12:07 | Emergency (ER) | payer OTHER ==
[~2018-10-29] VITALS: Ht 170.2 cm; Wt 78.2 kg
[~2018-10-29 12:07] MED LIST changes: +HYDR-3240 PO; +LISI-167 PO; +TRAM50TA2 PO
[2018-10-29] MEDS ORDERED: ONDANSETRON 2MG/ML, 2ML IVPush ONE (13:00)
[2018-10-29] MEDS ORDERED: SODIUM CHLORIDE 0.9% 1,000ML IVBOLUS ONE (13:00)
[2018-10-29] MEDS ORDERED: MORPHINE SULFATE 4 MG/ML, 1ML IVPush PRN (13:00)
[2018-10-29] MEDS ORDERED: SODIUM CHLORIDE FLUSH 10ML SYR IVF ONE (13:00)
[2018-10-29 13:38] LABS: BASOPHILS # (AUTO) 0.04 x10^3/uL (0-0.1); BASOPHILS % (AUTO) 0 % (0-1); EOSINOPHILS # (AUTO) 0.91 x10^3/uL (0-0.4); EOSINOPHILS % (AUTO) 10 % (1-7); LYMPHOCYTES # (AUTO) 2.13 x10^3/uL (1-3.4); LYMPHOCYTES % (AUTO) 24 % (22-44); MD NO; MEAN CORPUSCULAR HEMOGLOBIN 30.8 pg (27.5-34.5); MEAN CORPUSCULAR HGB CONC 33.6 g/dL (33.2-36.2); MEAN CORPUSCULAR VOLUME 91.8 fL (81-97); MEAN PLATELET VOLUME 7.3 fL (7.4-10.4); MONOCYTES # (AUTO) 0.84 x10^3/uL (0.2-0.8); MONOCYTES % (AUTO) 9 % (2-9); NEUTROPHILS # (AUTO) 5.07 x10^3/uL (1.8-6.8); NEUTROPHILS % (AUTO) 57 % (42-75); PLATELET COUNT 346 x10^3/uL (130-400); RED BLOOD COUNT 5.35 x10^6/uL (4.38-5.82); RED CELL DISTRIBUTION WIDTH 13.4 % (9.4-14.8)
[2018-10-29] MEDS ORDERED: ONDANSETRON 2MG/ML, 2ML ONE (13:42)
[2018-10-29] MEDS ORDERED: MORPHINE SULFATE 4 MG/ML, 1ML ONE (13:42)
[2018-10-29 13:48] LABS: ALANINE AMINOTRANSFERASE 35 U/L (12-78); ALBUMIN 3.3 g/dL (3.4-5.0); ANION GAP 8 mmol/L (5-15); CALCIUM 8.8 mg/dL (8.5-10.1); CHLORIDE 105 mmol/L (98-107)
[2018-10-29 13:51] LABS: ALKALINE PHOSPHATASE 86 U/L (45-117); BILIRUBIN,TOTAL 0.6 mg/dL (0.2-1.0); CREATININE 1.11 mg/dL (0.7-1.3); TOTAL PROTEIN 7.2 g/dL (6.4-8.2)
[2018-10-29] MEDS ORDERED: OMNIPAQUE 350 MG/ML, 100ML BOTTLE ONE (14:46)
[2018-10-29 16:35] LABS: CLOSTRIDIUM DIFFICILE ANTIGEN NEGATIVE; CLOSTRIDIUM DIFFICILE TOXIN NEGATIVE (Negative)
[2018-10-29 16:56] VITALS: BP 132/86
== END 2018-10-29 17:01 | disposition home or self-care (01) ==
LOC: ED 12:45
DX: A09 Infectious gastroenteritis and colitis, unspecified (principal); Z90.49 Acquired absence of other specified parts of digestive tract
CPT/HCPCS: 36415; 74021; 74177; 80053; 83690; 85025; 87046; 87324; 87427; 89055; 93005; 96361; 96374; 96375; 99284; J2405; J7030; Q9967